=== PATIENT | male | born 1965 | race Caucasian/White ===

== ENCOUNTER → 2016-06-03 | Day surgery (SDC) | payer OTHER ==
[2015-05-30 15:17] VITALS: BMI 29.8
[~2016-06-03] MED LIST: BUPIVACAINE 0.25% 30 ML VIAL ONE; CEFAZOLIN 1 GM VIAL ONE; FENTANYL 100 MCG/2 ML VIAL IV ONE; FENTANYL 100 MCG/2 ML VIAL IV PRN; HYDROmorphone 1 MG INJECTION IV PRN; KETOROLAC TROMETH 30 MG/ML VIAL IM ONE; LABETALOL 20 MG/4 ML SYRINGE IV PRN; LIDOCAINE 100 MG PFS IV ONE; MEPERIDINE 25 MG/ML TUBEX IV PRN; MIDAZOLAM 2 MG/2 ML VIAL IV ONE; ONDANSETRON HCL 4 MG ODT TAB PO PRN; ONDANSETRON HCL 4 MG/2 ML VIAL IV ONE; ONDANSETRON HCL 4 MG/2 ML VIAL IV PRN; PROPOFOL 200 MG/20 ML VIAL IV ONE; ROCURONIUM 50 MG/5 ML VIAL IV ONE; SUCCINYLCHOLINE 20 MG/1 ML INJ 10 ML MDV IV ONE; hydrALAZINE 20 MG/ML VIAL IV PRN
[2016-06-03 06:05] LABS: LEUKOCYTES/URINE NEG (NEGATIVE); NITRITE/URINE NEG (NEGATIVE); URINE OCCULT BLOOD 2+ (NEG/TRACE); WBC/URINE 0-2 (0-2)
[2016-06-03 06:37] LABS: AUTOMATED BASOPHIL 0.5 % (0-2); AUTOMATED EOSINOPHIL 3.2 % (0-5); AUTOMATED MONOCYTE 6.7 % (3-10); AUTOMATED NEUTROPHIL 51.6 % (45-76); MPV 7.9 fL (7.4-10.4)
[2016-06-03 06:47] LABS: BLOOD UREA NITROGEN 10 MG/DL (9-20); CALCIUM 8.9 MG/DL (8.4-10.2); CALCULATED OSMOLALITY 270 MOs/Kg (270-290); CHLORIDE 105 mEq/L (98-107); GLUCOSE 96 mg/dL (70-99); SODIUM LEVEL 141 mEq/L (137-146); TOTAL PROTEIN 6.8 G/DL (6.3-8.2)
--- NOTE | 2016-06-03 06:56 | HIM.ANES ---
Anesthesia Evaluation & Plan Diagnoses: BI INGUINAL HERNIA, W/O OBST OR GANGRENE, NOT SPCF RECUR (06/03/16) VENTRAL HERNIA WITHOUT OBSTRUCTION OR GANGRENE (06/03/16) Consented Procedure: Bilateral inguinal hernia repair. Ventral hernia repair - Focused Review of Systems Cardiac History: Yes: Hx Cardiac Disorders, Hx Abnormal Cholesterol/ Hyperlipidemia (CONTROLLED WITH DIET) No: Hx Hypertension, Hx Angina, Hx Heart Attack HEENT: Yes: Hx Vision Problem (READING GLASSES), Other HEENT Problems No: Loose/Decaying Teeth, Removable Dental Work Hx Other HEENT Surgery: TONSILLECTOMY Respiratory: Yes: Hx Snoring, Other Hx Respiratory Gastrointestinal: Yes: Hx Gastrointestinal Disorders, Hx Colonoscopy (2015 POLYPECTOMY) Neurological/Musculoskeletal: No: HX Cerebrovascular Accident, Hx Neurological Disorders Psychological: Yes Hx Anxiety, Yes Hx Mental/Emotional Disorders HX Other Psyco/Soc Problems: PSYCHOSIS, INSOMNIA Endocrine: No: Hx Diet Controlled Diabetes Blood/Autoimmune: No: Hx Blood Transfusions, Hx AIDS, Hx Hepatitis (type) Smoking Status: Current some day smoker Past Social History: Denies: Amphetamine Use Other Surgical History: TONSILLECTOMY VASECTOMY LESION REMOVED FROM FOREHEAD - Focused Physical Exam NPO since: 2330 Mallampati: Class II Thyromental Distance: Greater than 3 Neck: Full Range of Motion Dental: Normal - no significant findings Cardiovascular/Chest: Normal Respiratory: Lungs clear, Normal breath sounds Any problems with anesthesia, including nausea and vomiting?: No Any relatives with a history of Malignant Hyperthermia?: No Does patient have a history of Malignant Hyperthermia?: No Beta Toshia given (if appropriate): N/A Does the patient have a history of Motion Sickness-: No Other: CBC/BMP/Other 06/03/16 06:20 06/03/16 06:20 Allergies Allergy/AdvReac Type Severity Reaction Status Date / Time sulfamethoxazole Allergy Intermediate Itching Verified 06/03/16 06:17 [From Bactrim] trimethoprim [From Bactrim] Allergy Intermediate Itching Verified 06/03/16 06:17 Home Medications Medication Instructions Recorded Last Taken Type [place] Carbonate [[place] 300 mg PO HS 05/30/15 06/02/16 22:00 History Carbonate ER] Olanzapine 2.5 mg PO HS 05/30/15 06/02/16 22:00 History Trazodone HCl 50 mg PO HS PRN 05/30/15 05/31/16 20:00 History Height and Weight Patient's height 6 ft Patient's weight 101.151 kg BMI 29.8 Vital Signs Temperature 97.7 F 06/03/16 06:05 Pulse Rate 67 06/03/16 06:05 Respiratory Rate 18 06/03/16 06:05 Blood Pressure 104/67 06/03/16 06:05 Pulse Oxygen Saturation 94 06/03/16 06:05 METS - Level of Activity: Climbing stairs(1 flight),walking level ground, running short distance - Anesthetic Plan Anesthesia Type: General ASA Class: 2 -: I have examined this patient and reviewed the medical record. The patient has been assessed prior to anesthesia. Risks and benefits of anesthesia and anesthetic technique options have been discussed and all questions answered. The patient accepts the risk and desires me to proceed with the planned anesthetic.
--- NOTE | 2016-06-03 09:00 | HIMOPRPT ---
DATE OF PROCEDURE: 06/03/16 PREOPERATIVE DIAGNOSIS: Incarcerated ventral abdominal hernia, bilateral inguinal hernia. POSTOPERATIVE DIAGNOSIS: Incarcerated ventral abdominal hernia, pantaloon right inguinal hernia, direct left inguinal hernia. PROCEDURES: Repair of incarcerated ventral abdominal hernia with placement of an 6.4 cm Bard Ventralex mesh, repair of right inguinal hernia, repair of left inguinal hernia. SURGEON: Ilia Jerome MD ANESTHESIA: General. COMPLICATIONS: None. SPECIMENS: None. PACKINGS AND DRAINS: None. BLOOD LOSS: 4 cc OPERATIVE FINDINGS AND TECHNIQUE: With consent, the patient was brought to the operative suite, placed in supine position. Following general anesthesia, the abdomen and inguinal areas were prepped and draped in usual fashion. A curvilinear infraumbilical incision was made. Dissection was carried down to the level of the fascia. The fascia was identified. There was an obvious fascial defect. Preperitoneal dissection was undertaken. The fascia defect measured approximately 1 cm. An 6.4 cm Bard Ventralex was chosen for the repair. This was placed in the subfascial location and deployed appropriately. The Ventralex was secured circumferentially using interrupted horizontal mattress sutures of 0 Vicryl. Wound was irrigated and dried. Hemostasis was achieved. The hernial defect was reapproximated over the mesh using interrupted [id number] 0-Vicryl suture. Wound was irrigated and dried. Deep, subcutaneous, and subcuticular tissues were injected with 0.25% Marcaine. Subcutaneous tissue was reapproximated using the 3-0 Vicryl, and skin approximation was accomplished using 4-0 Monocryl in subcuticular fashion. Dermabond, 2 x 2 gauze, and Tegaderm dressing were applied to the wound. The patient tolerated the procedure well. There was no pathologic specimen. An oblique incision made in the right inguinal area. Dissection was carried through the skin to the underlying subcutaneous tissue. Scarpas fascia was incised, and ultimately the external oblique aponeurosis was identified. Incision was made in line of fibers of external oblique aponeurosis and transection was taken through the external ring. There was an obvious indirect inguinal hernia sac. The floor of the inguinal canal was disrupted with a direct hernial defect. The right inguinal hernia was thus a pantaloon inguinal hernia.. The indirect inguinal hernia sac was dissected high to the internal ring and reduced to the internal ring. A large Bard mesh Plug was fashioned and the plug placed through the internal ring and secured circumferentially using horizontal mattress sutures of 0 Vicryl. The direct hernial defect was scored and preperitoneal dissection was undertaken. A PHSE mesh was chosen for this repair. The underlay deployed appropriately the overlay was cut to allow keyhole passage of the spermatic cord and surrounding structures. The onlay patch was then placed across the floor of the canal and secured using 0 Vicryl sutures well. Repair was secured. Irrigation was achieved and hemostasis was achieved. Deep, subcutaneous, and subcuticular tissues were injected with 0.25% Marcaine. External oblique aponeurosis was reapproximated 3 0 Vicryl suture. Scarpas fascia was closed using 2-0 plain. Skin approximation was accomplished using 4- 0 Monocryl in subcuticular fashion. Dermabond, 2x2 gauze, and Tegaderm dressing were applied to the wound. The patient tolerated the procedure well with findings as described. At termination of procedure, all instrument, sponge, and needle counts were correct. An oblique incision made in the left inguinal area. Dissection was carried through the skin to the underlying subcutaneous tissue. Scarpas fascia was incised, and ultimately the external oblique aponeurosis was identified. Incision was made in line of fibers of external oblique aponeurosis and transection was taken through the external ring. There was no evidence of indirect inguinal hernia sac. The floor of the inguinal canal was blown out consistent with a direct inguinal hernia. The direct inguinal hernia sac was scored and preperitoneal dissection was undertaken. A PHSE mesh was chosen for the repair. The underlay deployed appropriately. The overlay was cut to allow keyhole passage of the spermatic cord and surrounding structures . The onlay patch was then placed across the floor of the canal and secured using 3 0 Vicryl sutures well. Repair was secured. Irrigation was achieved and hemostasis was achieved. Deep, subcutaneous, and subcuticular tissues were injected with 0.25% Marcaine. External oblique aponeurosis was reapproximated Vicryl suture. Scarpas fascia was closed using 2-0 plain. Skin approximation was accomplished using 4-0 Monocryl in subcuticular fashion. Dermabond, 2x2 gauze, and Tegaderm dressing were applied to the wound. The patient tolerated the procedure well with findings as described. At termination of procedure, all instrument, sponge, and needle counts were correct.
[2016-06-03 09:37] VITALS: TEMP 97.5
[2016-06-03 09:49] VITALS: BP 142/88; PULSE 56
--- NOTE | 2016-06-04 15:37 | SC.ANESPOS ---
Post-Anesthesia Note LOC: Fully Awake Post-Anesthesia Assessment: Awake, Returned to Baseline, Hemodynamically Stable , Pain Control Adequate Phase I & II Recovery Complete: Yes Apparent Anesthesia Complication: No : N - Vital Signs Blood Pressure: 142/88 Pulse: 56 Resp Rate: 14 O2 Sat: 100 Temp: 97.5 F
== END ==
LOC: SDC 05:35
PROVIDERS: ATTEND Surgery Vascular Surgery
PROC: 0YUA0JZ Supplement Bilateral Inguinal Region with Synthetic Substitute, Open Approach (ICD-10-PCS; principal; 2016-06-03 07:15)
PROC: 0WUF0JZ Supplement Abdominal Wall with Synthetic Substitute, Open Approach (ICD-10-PCS; 2016-06-03 07:15)
DX: K40.20 Bilateral inguinal hernia, without obstruction or gangrene, not specified as recurrent (principal); K43.6 Other and unspecified ventral hernia with obstruction, without gangrene; E78.5 Hyperlipidemia, unspecified; F41.9 Anxiety disorder, unspecified; F17.200 Nicotine dependence, unspecified, uncomplicated; E66.9 Obesity, unspecified; Z68.30 Body mass index [BMI] 30.0-30.9, adult; Z79.899 Other long term (current) drug therapy
CPT/HCPCS: 49505; 49561; 49568; 80053; 80178; 81001; 85025; C1781; J0330; J0690; J1885; J2001; J2250; J2405; J3010; J3490; S0020